=== PATIENT | female | born 1955 | race Caucasian/White ===

== ENCOUNTER → 2016-09-25 | Outpatient (CLI) | payer OTHER ==
--- NOTE | 2016-09-25 14:54 | KCIC ---
MR CERVICAL SPINE Cervical radiculopathy. Left shoulder pain. MR cervical spine from 11/29/2015 Technique: Sagittal T2, sagittal STIR, sagittal T1, and axial gradient echo imaging was obtained of the cervical spine. FINDINGS: There is straightening of the cervical lordosis. Vertebral body heights are maintained. Overall bone marrow signal is within normal limits. The cord is normal in caliber with no signal abnormality identified. Visualized soft tissues of the neck are within normal limits. At C2-3 there is no spinal stenosis. At C3-4 there is no spinal stenosis. At C4-5 there is a disc osteophyte complex which abuts the ventral surface of the cord but does not cause mass effect upon it. Bilateral uncovertebral hypertrophy results in mild bilateral foraminal narrowing. At C5-C6 there is a disc osteophyte complex causing mild mass effect upon the ventral surface of the cord. This is unchanged. There is no cord signal abnormality. Moderate bilateral foraminal stenosis from uncovertebral hypertrophy. At C6-7 there is moderate left foraminal narrowing from uncovertebral hypertrophy. At C7-T1 there is no spinal stenosis. IMPRESSION: Degenerative disc disease greatest at C5-6 where there is mild mass effect upon the cord and moderate bilateral foraminal stenosis. This is unchanged. At C6-7 there is moderate left foraminal stenosis from uncovertebral hypertrophy. Other less severe degenerative changes bilaterally as well. Electronically signed by: Mor Hill MD (09/25/2016 2:51 PM)
== END | disposition home or self-care (01) ==
LOC: KCIC MRI 13:44
PROVIDERS: ATTEND Anesthesiology Pain Medicine
DX: M47.22 Other spondylosis with radiculopathy, cervical region (principal); M48.06 Spinal stenosis, lumbar region
CPT/HCPCS: 72141

== ENCOUNTER → 2017-12-18 | Outpatient (CLI) | payer OTHER ==
--- NOTE | 2017-12-18 09:08 | KCIC ---
MRI Cervical Spine Without Contrast History: Cervicalgia, neck pain, left hand numbness for 3 years Technique: Multiplanar, multi sequential noncontrast MR imaging was performed of the cervical spine. Comparison: September 25, 2016 Findings: Cervical vertebral body stature and AP alignment are preserved. There is straightening of cervical spine again with mild reversal of the lordotic curvature centered about C5. There is [id number] degenerative disc disease at C5-C6 and to a somewhat lesser degree at C4-C5, minimally at C6-7. There is no new significant marrow edema. Cervical cord caliber is within normal limits, some artifact of the cord, no defined reproducible signal abnormality on the various image sequences. C2-C3: Spinal canal and neural foramina are adequate. C3-C4: Spinal canal and neural foramina are adequate. C4-C5: There is minimal disc osteophyte complex and bulge. Central canal is borderline about 10 mm. There is uncovertebral degenerative change somewhat greater on the right. There is mild facet degenerative change. There is mild narrowing of the right neural foramen, left neural foramen overall adequate. C5-C6: There is minimal disc osteophyte complex and bulge as seen previously with mild indentation upon the ventral thecal sac, central canal narrowed to about 8 mm as seen previously. There is bilateral facet degenerative change and right uncovertebral degenerative change. There is [id number] narrowing of the right neural foramen, left neural foramen overall adequate. C6-C7: There is negligible disc osteophyte complex and bulge. Central canal is minimally narrowed to about 9 mm. There is facet degenerative change, also left uncovertebral degenerative change. Right neural foramen is adequate. There is again fairly severe narrowing of the left neural foramen. C7-T1: Spinal canal and neural foramina are adequate. There is mild uncovertebral degenerative change. Impression: 1. Findings are similar comparing with September 2016 exam. There is spinal stenosis on the order of 8 mm at C5-C6 and to a somewhat lesser degree at C6-7. There is degenerative disc disease greatest at C5-C6 and to a somewhat lesser degree at C4-5 and C6-7 with spondylosis at the same levels. 2. There is again fairly severe narrowing of the left C6-7 neural foramen due to facet and uncovertebral degenerative change, also [id number] narrowing on the right at C5-C6. Electronically signed by: Martínez Ndiaye MD (12/18/2017 9:05 AM) [id number]
== END | disposition home or self-care (01) ==
LOC: KCIC MRI 07:52
PROVIDERS: ATTEND Physician Assistant Medical
DX: M50.321 Other cervical disc degeneration at C4-C5 level (principal); M48.02 Spinal stenosis, cervical region; M47.892 Other spondylosis, cervical region
CPT/HCPCS: 72141

== ENCOUNTER → 2021-02-14 | Outpatient (CLI) | payer BC, OTHER ==
--- NOTE | 2021-02-14 13:29 | KCIC ---
EXAMINATION: MRI LEFT KNEE WITHOUT IV CONTRAST CLINICAL HISTORY: Acute left knee pain. Left knee popped on 02/11/21. Posterior knee pain/swelling. TECHNIQUE: Multiplanar multisequential images obtained through the knee without intravenous contrast. COMPARISON: None FINDINGS: MENISCI: Medial Meniscus: Intact. Lateral Meniscus: Intact. LIGAMENTS: ACL: Intact PCL: Intact MCL: Intact LCL Complex: Intact CARTILAGE: Medial Femoral Condyle: Moderate sized area(s) of predominantly low grade (less than 50% thickness) c artilage loss and or fissuring with smaller area(s) of high grade (greater than 50% thickness) cartil age loss and or fissuring in the weightbearing portion of the condyle Medial Tibial Plateau: Normal Lateral Femoral Condyle: Small areas(s) of predominantly low grade (less than 50% thickness) cartilag e loss and or fissuring with smaller area(s) of high grade (greater than 50% thickness) cartilage los s and or fissuring in the weightbearing portion of the condyle Lateral Tibial Plateau: Small area(s) of low grade (less than 50% thickness) partial thickness cartil age loss and or fissuring Patella: Large area(s) of full thickness cartilage loss/fissuring Trochlea: Moderate sized area(s) of predominantly low grade (less than 50% thickness) cartilage loss and or fissuring with smaller area(s) of high grade (greater than 50% thickness) cartilage loss and o r fissuring TENDONS: Distal quadriceps and patellar tendons intact. Popliteus tendon intact. BONES AND MARROW: No evidence of acute fracture or suspicious marrow replacing process. MUSCLES: Muscle bulk and signal intensity within normal limits. JOINT FLUID AND SYNOVIUM: Moderate joint effusion. No synovitis. No Cardenas's cyst. IMPRESSION: Tricompartmental chondral wear as described, severe in the patella. No meniscus tear or acute ligamentous injury. Electronically signed by: Kavon Payne DO (02/14/2021 1:27 PM) [id number]
== END ==
LOC: KCIC MRI 08:21
PROVIDERS: ATTEND Physician Assistant Medical
DX: M25.462 Effusion, left knee (principal); M25.862 Other specified joint disorders, left knee
CPT/HCPCS: 73721